=== PATIENT | female | born 1970 | race American Indian/Alaskan Native ===

== ENCOUNTER 2016-04-09 05:04 | Emergency (ER) | payer OTHER ==
[2016-04-09] MEDS ORDERED: DELTASONE ONE (05:10)
[2016-04-09] MEDS ORDERED: BENADRYL PO ONE ×2 (05:10→05:18)
[2016-04-09] MEDS ORDERED: DELTASONE PO ONE (05:18)
--- NOTE | 2016-04-09 08:48 | Emergency Department Report ---
ED General Adult HPI - General Chief complaint: Allergic Reaction Stated complaint: BODY RASH Time Seen by Provider: 04/09/16 07:53 Source: patient Mode of arrival: Ambulatory Limitations: No Limitations - History of Present Illness Initial comments: 5-year-old female states she's been taking losartan for 2 weeks. Approximately one week ago, she developed lip swelling. It hasn't progressed much. She states that more than 2 weeks ago she had some hives but not now. She has some on pruritus but she can't notice any rash. She is a regular patient of Dr. Jason. She reports no mouth or tongue swelling other than the lips. She reports no difficulty in swallowing no breathing problem and no neck swelling. Her lip swelling has not been progressive today that he had it worsens slightly last night. -: week(s) Severity scale (0 -10): 0 Improves with: none Worsens with: none Associated Symptoms: denies other symptoms Treatments Prior to Arrival: none - Related Data Home Medications Medication Instructions Recorded Confirmed Last Taken Losartan/Hydrochlorothiazide 1 each PO DAILY 04/09/16 04/09/16 1 Day Ago [Losartan-Hctz 100-25 mg Tab] Previous Rx's Medication Instructions Recorded Last Taken Type amLODIPine [Norvasc] 5 mg PO DAILY #30 tab 04/09/16 Unknown Rx Allergies Allergy/AdvReac Type Severity Reaction Status Date / Time No Known Allergies Allergy Verified 04/09/16 05:17 ED Review of Systems ROS: Stated complaint: BODY RASH Other details as noted in HPI Constitutional: denies: chills, fever Eyes: denies: eye pain, eye discharge, vision change ENT: denies: ear pain, throat pain Respiratory: denies: cough, shortness of breath, wheezing Cardiovascular: denies: chest pain, palpitations Endocrine: no symptoms reported Gastrointestinal: denies: abdominal pain, nausea, diarrhea Genitourinary: denies: urgency, dysuria, discharge Musculoskeletal: denies: back pain, joint swelling, arthralgia Skin: as per HPI Neurological: denies: headache, weakness, paresthesias Psychiatric: denies: anxiety, depression Hematological/Lymphatic: denies: easy bleeding, easy bruising ED Past Medical Hx - Past Medical History Hx Hypertension: Yes - Social History Smoking Status: Never Smoker Substance Use Type: None - Medications Home Medications: Home Medications Medication Instructions Recorded Confirmed Last Taken Type Losartan/Hydrochlorothiazide 1 each PO DAILY 04/09/16 04/09/16 1 Day Ago History [Losartan-Hctz 100-25 mg Tab] amLODIPine [Norvasc] 5 mg PO DAILY #30 tab 04/09/16 Unknown Rx ED Physical Exam - General Limitations: No Limitations General appearance: alert, in no apparent distress - Head Head exam: Present: atraumatic, normocephalic - Eye Eye exam: Present: normal appearance. Absent: scleral icterus - ENT ENT exam: Present: normal orophraynx, mucous membranes moist, other (1+ lower lip swelling) - Neck Neck exam: Present: normal inspection, other (no edema). Absent: tenderness, meningismus - Respiratory Respiratory exam: Present: normal lung sounds bilaterally. Absent: respiratory distress - Cardiovascular Cardiovascular Exam: Present: regular rate, normal rhythm. Absent: systolic murmur, diastolic murmur, rubs, gallop - GI/Abdominal GI/Abdominal exam: Present: soft, normal bowel sounds. Absent: distended, tenderness - Extremities Exam Extremities exam: Present: normal inspection. Absent: pedal edema, joint swelling - Back Exam Back exam: Present: normal inspection - Neurological Exam Neurological exam: Present: alert, oriented X3, CN II-XII intact. Absent: motor sensory deficit - Psychiatric Psychiatric exam: Present: normal affect, normal mood - Skin Skin exam: Present: warm, dry, intact, normal color, other (no wheals noted). Absent: rash ED Course Vital Signs 04/09/16 04/09/16 04/09/16 05:15 07:56 08:03 Temperature 98.5 F Pulse Rate 86 75 Respiratory 18 16 16 Rate Blood Pressure 194/113 Blood Pressure 142/86 [Right] O2 Sat by Pulse 100 98 Oximetry - Reevaluation(s) Reevaluation #1: Steroids Benadryl and Pepcid. Losartan discontinued. Norvasc started. Blood pressure when I took it was about 170/100. 04/09/16 08:50 04/09/16 08:51 Critical care attestation.: If time is entered above; I have spent that time in minutes in the direct care of this critically ill patient, excluding procedure time. ED Disposition Clinical Impression: Uncontrolled hypertension Angioedema of lips Qualifiers: Encounter type: initial encounter Qualified Code(s): T78.3XXA - Angioneurotic edema, initial encounter Disposition: DISCHARGED TO HOME OR SELFCARE Is pt being admited?: No Does the pt Need Aspirin: No Condition: Stable Instructions: Hypertension (ED), Angioedema (ED) Additional Instructions: Discontinue losartan. New Rx for blood pressure medicine. Continue Benadryl and Pepcid [id number]. You may take 50 mg of Benadryl every 6 hours for itching. Take 20 mg of Pepcid twice a day for 5 days. These medicines are over -the-counter. Return as needed any increased swelling. Follow-up with Dr. Jason. Prescriptions: amLODIPine [Norvasc] 5 mg PO DAILY #30 tab Referrals: ONEIDA JASON MD [Primary Care Provider] - 3-5 Days Time of Disposition: 08:53
[2016-04-09] MEDS ORDERED: PEPCID PO ONE (08:56)
[2016-04-09] MEDS ORDERED: NORVASC PO ONE (08:56)
[2016-04-09 09:21] VITALS: BP 176/98
== END 2016-04-09 08:53 | disposition home or self-care (01) ==
LOC: ED 05:04
DX: I10 Essential (primary) hypertension (principal); T78.3XXA Angioneurotic edema, initial encounter
CPT/HCPCS: 99282; J7512

== ENCOUNTER 2016-05-09 08:06 | Outpatient (CLI) | payer OTHER ==
--- NOTE | 2016-05-09 10:46 | Mammography Report ---
BILATERAL MAMMOGRAM: Compared to 10/20/14. CAD study utilized. FINDINGS: Heterogeneous breast parenchyma bilaterally. No mass or microcalcification. Benign densities right breast. Benign axilla. IMPRESSION: Benign findings. Annual follow-up recommended. BI-RADS CATEGORY: 2 = Benign ACR BI-RADS MAMMOGRAPHIC CODES: 0 = Needs additional imaging evaluation; 1 = Negative; 2 = Benign; 3 = Probably benign; 4 = Suspicious; 5 = Malignant; 6 = Known biopsy-proven malignancy COMMENT: 1. Dense breast tissue, i.e., adenosis, fibrocystic changes, etc., may obscure an underlying neoplasm. 2. Approximately 10% of cancers are not detected with mammography. 3. A negative mammography report should not delay biopsy if a clinically suspicious mass is present. COMMENT: Patient follow-up letters are generated in [employer].
== END 2016-05-09 08:07 | disposition home or self-care (01) ==
LOC: MAMMO 08:06
PROVIDERS: ATTEND Family Medicine
DX: Z12.31 Encounter for screening mammogram for malignant neoplasm of breast (principal)
CPT/HCPCS: 77067; G0202

== ENCOUNTER 2016-12-12 18:46 | Emergency (ER) | payer OTHER | END 2016-12-12 19:04 | disposition left against medical advice (07) | LOC: ED 18:46 | DX: M25.562 Pain in left knee (principal); Z53.21 Procedure and treatment not carried out due to patient leaving prior to being seen by health care provider ==

== ENCOUNTER 2016-12-15 16:27 | Emergency (ER) | payer OTHER ==
[2016-12-15 16:36] VITALS: BP 197/103
[2016-12-15] MEDS ORDERED: TYLENOL PO ONE (16:38)
[2016-12-15 16:57] LABS: Hematocrit 36.8 % (30.3-42.9); Hemoglobin 11.6 gm/dl (10.1-14.3); Mean Corpuscular HGB Conc 32 % (30-34); Mean Corpuscular Volume 78 fl (79-97); Platelet Count 240 K/mm3 (140-440); Red Blood Count 4.71 M/mm3 (3.65-5.03); Red Cell Distribution Width 16.9 % (13.2-15.2)
[2016-12-15 17:00] LABS: Mean Corpuscular Hemoglobin 25 pg (28-32)
[2016-12-15 17:10] LABS: Anion Gap 16 mmol/L; BUN/Creatinine Ratio 24.28; Blood Urea Nitrogen 17 mg/dL (7-17); Calcium 9.2 mg/dL (8.4-10.2); Carbon Dioxide 26 mmol/L (22-30); Chloride 97.2 mmol/L (98-107); Glucose 87 mg/dL (65-100); Potassium 3.4 mmol/L (3.6-5.0); Sodium 136 mmol/L (137-145)
[2016-12-15 17:50] LABS: Basophils % (Manual) 0 % (0.0-1.8); Blastocytes % (Manual) 0 %
[2016-12-15 17:51] LABS: Diff Status Complete; Hypochromasia 1+
--- NOTE | 2016-12-16 10:52 | Vascular Lab Report ---
Left Lower Extremity Venous Duplex Study: Reason for Exam: Pain of the left lower extremity. Comments on the Right: A limited duplex study was done of the proximal veins of the right lower extremity. All veins visualized are freely compressible without evidence of internal echogenicity. Flow is spontaneous and phasic throughout. No evidence of acute or chronic thrombus is seen in any of the vessels visualized. Comments on the Left: All veins visualized are freely compressible without evidence of internal echogenicity. Flow is spontaneous and phasic throughout. No evidence of acute or chronic thrombus is seen in any of the vessels visualized. Impression: No evidence of acute or chronic deep venous thrombosis in the left lower extremity.
== END 2016-12-15 19:55 | disposition left against medical advice (07) ==
LOC: ED 16:27
DX: M79.605 Pain in left leg (principal); Z53.21 Procedure and treatment not carried out due to patient leaving prior to being seen by health care provider
CPT/HCPCS: 36415; 80048; 85007; 85025

== ENCOUNTER 2017-04-10 17:30 | Emergency (ER) | payer OTHER | END 2017-04-10 18:15 | disposition left against medical advice (07) | LOC: ED 17:30 | DX: M25.562 Pain in left knee (principal); Z53.21 Procedure and treatment not carried out due to patient leaving prior to being seen by health care provider ==

== ENCOUNTER 2017-07-24 07:21 | Outpatient (CLI) | payer OTHER ==
--- NOTE | 2017-07-26 13:19 | Mammography Report ---
BILATERAL MAMMOGRAM: FINDINGS: The breast tissue is heterogeneously dense, which could obscure detection of small masses (approximately 50%-75% glandular). No mass, distortion, suspicious calcification, or skin change is seen. No significant change when compared to exams dating back to September 2014. CAD was utilized. IMPRESSION: Negative mammogram. There is no mammographic evidence of malignancy. RECOMMENDATION: Follow-up per ACS guidelines. BI-RADS CATEGORY: 1 = Negative ACR BI-RADS MAMMOGRAPHIC CODES: 0 = Needs additional imaging evaluation; 1 = Negative; 2 = Benign; 3 = Probably benign; 4 = Suspicious; 5 = Malignant; 6 = Known biopsy-proven malignancy COMMENT: 1. Dense breast tissue, i.e., adenosis, fibrocystic changes, etc., may obscure an underlying neoplasm. 2. Approximately 10% of cancers are not detected with mammography. 3. A negative mammography report should not delay biopsy if a clinically suspicious mass is present. COMMENT: Patient follow-up letters are generated in [employer].
== END 2017-07-24 07:22 | disposition home or self-care (01) ==
LOC: MAMMO 07:21
PROVIDERS: ATTEND Internal Medicine
DX: Z12.31 Encounter for screening mammogram for malignant neoplasm of breast (principal)
CPT/HCPCS: 77067